=== PATIENT | female | born 1980 | race Caucasian/White ===

== ENCOUNTER 2018-06-14 23:14 | Inpatient (IN) ==
--- NOTE | 2018-06-15 00:54 | ED ---
History of Present Illness Service: [facility] [place] Care Physician: NOT REQUIRED Yves Caceres MD Chief Complaint: Contractions History of Present Illness: This 38 y/o female , EDC 06/27/18, EGA 38 2/7 wks presents due to feeling ctxs. She felt ctxs occ yesterday and then this evening started feeling them more regularly. She has hx LTCS for arrrested descent. She is scheduled for a RLTCS 06/22/18. She denies probs with this . Weeks Gestation:: 38 Para: 1 : 3 Review of Systems All other systems reviewed negative except as stated in HPI PMFSH - History History Provided By: Patient - Medical / Surgical Hx Neg / Unobtainable Medical Problems Denied: Yes - Surgical History Surgical History: Surgical History (Last Updated 06/15/18 @ 00:58 by Mattie Stewart DO) H/O breast augmentation Hx of section - Social History I have reviewed the patient's Social History: Yes - Tobacco History Smoking Status: Never smoker - Alcohol History How Often Do You Have a Drink Containing Alcohol: Never - Substance Use History Substance History: No History of Abuse - Travel History History of Recent Travel: No Recent Travel in the [place] Within the Last 8 Weeks: No Recent Travel Out of the Country Within the Last 8 Weeks: No Medications and Allergies Active Medications: Active Medications Lactated Ringer's (Lr 1000 Ml Inj) 1,000 mls @ 1,000 mls/hr IV.CONT .Q1H LINDSAY Sodium Chloride (Ns Flush) 2 ml IV.FLUSH BID LINDSAY Allergies Allergy/AdvReac Type Severity Reaction Status Date / Time No Known Allergies Allergy Severe Uncoded 04/08/05 04:04 Home Medications Medication Instructions Recorded Confirmed Type 06/15/18 History Exam Vital signs: Vital Signs 06/15/18 00:40 Temperature 98.9 F Pulse Rate 101 H Respiratory Rate 18 Blood Pressure 134/89 Narrative: GENERAL: Well-nourished, well-developed patient. SKIN: Warm and dry. HEAD: Normocephalic and atraumatic. EYES: No scleral icterus. No injection or drainage. ENT: No nasal drainage noted. Mucous membranes pink. Airway patent. NECK: Supple, trachea midline. No JVD. CARDIOVASCULAR: Regular rate and rhythm without murmurs, gallops, or rubs. RESPIRATORY: Breath sounds equal bilaterally. No accessory muscle use. BREASTS: Bilateral exam showed no masses , no retractions, no nipple discharge. ABDOMEN/GI: Abdomen soft, non-tender, bowel sounds present, no rebound, no guarding Gravid to [38] weeks size GENITOURINARY: External Genitalia: intact and normal in appearance BUS glands: [-] Cervix: [] Dilatation: [1] Effacement: [70] Station: [-2] Presentation: [vtx] Membranes: [intact] Uterine Contractions: [every 6 min] FHT's: Category: [1] Baseline: [130] Reactive: [Yes] Variability: [Mod] Decels: [No] EXTREMITIES: No cyanosis or edema. BACK: Nontender without obvious deformity. No CVA tenderness. NEUROLOGICAL: Awake and alert. Motor and sensory grossly within normal limits. Five out of 5 muscle strength in all muscle groups. Normal speech. Results - Labs Group B Strep: Negative Assessment and Plan - Diagnosis (1) Uterine contractions Status: Acute (2) Hx of section Code(s): Z98.891 - History of uterine scar from previous surgery Status: Acute (3) Advanced maternal age (AMA) in Status: Acute (4) 38 weeks gestation of Code(s): Z3A.38 - 38 weeks gestation of Status: Acute - Plan Will give 1L of LR and recheck cervix in 1 hr. If cervical change will contact Dr. Caceres for RLTCS. Discharge Plan - Physicians Team ED Provider: Yves Caceres Primary Care Provider: NOT REQUIRED, - Rxs /Orders / Referrals /Forms Prescriptions: No Action - Discharge Instructions Print Language: Faroese
[2018-06-15] MEDS ORDERED: fentaNYL Citrate Inj 100 MCG/2 ML Ampul IV.PUSH ONE (01:55)
--- NOTE | 2018-06-15 01:58 | P.OBGPN ---
Pt still with ctxs every 7-9 min. Pain scale 9 when she has a ctx. SVE 1-2// -2. WIll give dose of IV Fentanyl and recheck cervix.
--- NOTE | 2018-06-15 03:51 | P.HPOB ---
Patient Name: Christiana Goetz Date of : 82 Patient Status: Emergency Emergency Provider: Yves Caceres Date: 06/15/18 03:46 Initialization Date: 06/15/18 00:51 History of Present Illness [place] [facility] [place] Physician: NOT REQUIRED Yves Caceres MD Chief Complaint: Contractions History of Present Illness: This 38 y/o female , EDC 06/27/18, EGA 38 2/7 wks presents due to feeling ctxs. She felt ctxs occ yesterday and then this evening started feeling them more regularly. She has hx LTCS for arrrested descent. She is scheduled for a RLTCS 06/22/18. She denies probs with this . Cervix has changed from 1 cm to 3-4 cm. Weeks Gestation:: 38 Para: 1 : 3 Review of Systems All other systems reviewed negative except as stated in HPI PMFSH - History History Provided By: Patient - Medical / Surgical Hx Neg / Unobtainable Medical Problems Denied: Yes - Surgical History Surgical History: Surgical History (Last Updated 06/15/18 @ 00:58 by Mattie Stewart DO) H/O breast augmentation Hx of section - Social History I have reviewed the patient's Social History: Yes - Tobacco History Smoking Status: Never smoker - Alcohol History How Often Do You Have a Drink Containing Alcohol: Never - Substance Use History Substance History: No History of Abuse - Travel History History of Recent Travel: No Recent Travel in the [place] Within the Last 8 Weeks: No Recent Travel Out of the Country Within the Last 8 Weeks: No Medications and Allergies Active Medications: Active Medications Lactated Ringer's (Lr 1000 Ml Inj) 1,000 mls @ 1,000 mls/hr IV.CONT .Q1H LINDSAY Sodium Chloride (Ns Flush) 2 ml IV.FLUSH BID LINDSAY Allergies Allergy/AdvReac Type Severity Reaction Status Date / Time No Known Allergies Allergy Severe Uncoded 04/08/05 04:04 Home Medications Medication Instructions Recorded Confirmed Type 06/15/18 History Exam Vital signs: Vital Signs 06/15/18 00:40 Temperature 98.9 F Pulse Rate 101 H Respiratory Rate 18 Blood Pressure 134/89 Narrative: GENERAL: Well-nourished, well-developed patient. SKIN: Warm and dry. HEAD: Normocephalic and atraumatic. EYES: No scleral icterus. No injection or drainage. ENT: No nasal drainage noted. Mucous membranes pink. Airway patent. NECK: Supple, trachea midline. No JVD. CARDIOVASCULAR: Regular rate and rhythm without murmurs, gallops, or rubs. RESPIRATORY: Breath sounds equal bilaterally. No accessory muscle use. BREASTS: Bilateral exam showed no masses , no retractions, no nipple discharge. ABDOMEN/GI: Abdomen soft, non-tender, bowel sounds present, no rebound, no guarding Gravid to [38] weeks size GENITOURINARY: External Genitalia: intact and normal in appearance BUS glands: [-] Cervix: [] Dilatation: [3-4] Effacement: [70] Station: [-2] Presentation: [vtx] Membranes: [intact] Uterine Contractions: [every 6 min] FHT's: Category: [1] Baseline: [120] Reactive: [Yes] Variability: [Mod] Decels: [No] +Accels EXTREMITIES: No cyanosis or edema. BACK: Nontender without obvious deformity. No CVA tenderness. NEUROLOGICAL: Awake and alert. Motor and sensory grossly within normal limits. Five out of 5 muscle strength in all muscle groups. Normal speech. Results - Labs Group B Strep: Negative Assessment and Plan - Diagnosis (1) Uterine contractions- Labor Status: Acute (2) Hx of section Code(s): Z98.891 - History of uterine scar from previous surgery Status: Acute (3) Advanced maternal age (AMA) in Status: Acute (4) 38 weeks gestation of Code(s): Z3A.38 - 38 weeks gestation of Status: Acute - Plan Dr. Yves Caceres contacted and is coming in for RLTCS Discharge Plan - Physicians Team ED Provider: Yves Caceres Primary Care Provider: NOT REQUIRED, - Rxs /Orders / Referrals /Forms Prescriptions: No Action - Discharge Instructions Print Language: Palestinian
[2018-06-15] MEDS ORDERED: ceFAZolin 2 GM Premix Inj 2 GM/50 ML PIGGYBACK IV.SIG ONE (03:58)
[2018-06-15] MEDS ORDERED: Citric Acid/Sodium Citrate Liq 30 ML UDC PO SCH (04:00)
[2018-06-15 04:07] LABS: Baso # (Auto) 0.1 th/mm3 (0.0-0.2); Baso % (Auto) 0.5 % (0.0-2.0); Eos % (Auto) 0.4 % (0.0-4.0); Hematocrit 34.7 % (35.0-46.0); Lymph % (Auto) 19.1 % (9.0-44.0); Mean Corpuscular HGB Conc 34.7 % (32.0-36.0); Mean Corpuscular Hemoglobin 31.8 pg (27.0-34.0); Mean Corpuscular Volume 91.7 fL (80.0-100.0); Mean Platelet Volume 10.2 fL (7.0-11.0); Mono # (Auto) 0.8 th/mm3 (0.0-0.9); Mono % (Auto) 7.8 % (0.0-8.0); Neut # (Auto) 7.5 th/mm3 (1.8-7.7); Neut % (Auto) 72.2 % (16.0-70.0); Platelet Count 207 th/mm3 (150-450); Red Blood Count 3.79 mil/mm3 (4.00-5.30); Red Cell Distribution Width 13.5 % (11.6-17.2); White Blood Count 10.4 th/mm3 (4.0-11.0)
[2018-06-15] MEDS ORDERED: Morphine Sulfate PF Inj 5 MG/10 ML Ampul ONE (04:21)
[2018-06-15] MEDS ORDERED: Simethicone 80 MG Chew Tablet PO PRN (04:35)
[2018-06-15] MEDS ORDERED: Oxytocin 30 Units/500ml Premix 30 UNITS/500 ML BAG IV.SIG ONE (04:35)
[2018-06-15] MEDS ORDERED: Zolpidem Tartrate 5 MG Tablet PO PRN (04:35)
--- NOTE | 2018-06-15 06:32 | MH ---
cc: Yves Caceres MD DATE OF ADMISSION: 06/15/2018 ADMITTING DIAGNOSES: Term , early labor, previous section, advanced maternal age, and multiparity. HISTORY OF PRESENT ILLNESS: The patient is a 38-year-old, single, white female, para 1-0-1-1, with an LMP of 09/13/2017, EDC of 06/20/2018. Her preoperative course has been benign. Her first delivery by for failure to progress in distress and the patient desires repeat section. She reported increasing contractions since last evening, admitted to the labor room with progressive cervical change, is now admitted for delivery. PAST SURGICAL HISTORY: Breast augmentation at age 20, a in 2002. MEDICATIONS: Vitamins. ALLERGIES: NONE. TRANSFUSIONS: None. SOCIAL HISTORY: She is single. She is employed. Alcohol, tobacco, and drugs are none. FAMILY HISTORY: Noncontributory. PHYSICAL EXAMINATION: GENERAL: This is a well-nourished, well-developed white female. VITAL SIGNS: Stable. HEENT: Normal. CHEST: Clear. HEART: Regular rate. BREASTS: Symmetrical. ABDOMEN: Gravid. PELVIC: EFW 3500 grams. Cervix is now 3-4 cm, intact, vertex. EXTREMITIES: Normal. ASSESSMENT AND PLAN: As above. She has now been admitted for a repeat section and bilateral tubal interruption. Surgical risks, benefits, and complications including infection, injury, bleeding, and failure of the tubal were explained and accepted. MD LESVIA Cantu/carlos , 04:33 AM , 04:37 AM
--- NOTE | 2018-06-15 06:39 | MP ---
cc: Yves Caceres MD DATE OF OPERATION: 06/15/2018 PREOPERATIVE DIAGNOSES: 1. Term , early labor. 2. Advanced maternal age, 38. 3. Previous section. 4. Multiparity. POSTOPERATIVE DIAGNOSES. 1. Term , early labor. 2. Advanced maternal age, 38. 3. Previous section. 4. Multiparity. 5. Delivered. PROCEDURE PERFORMED: Repeat low transverse section and bilateral tubal interruption. ANESTHESIA: Spinal. SURGEON: Yves Caceres MD. ESTIMATED BLOOD LOSS: About 500 mL. FLUIDS: 2.5 liters crystalloid. OBJECTIVE FINDINGS: Following induction of adequate spinal anesthesia, the patient was prepped and draped supine on the operating table in left lateral tilt position in usual sterile fashion, with the bladder being drained by Rodgers conization. The abdomen was opened through a Pfannenstiel incision using a knife to excise her old scar. The fascia opened transversely, stripped from the muscles, rectus muscle opened in the midline, and the peritoneum opened sharply without incident. The bladder flap was taken down sharply and retracted inferiorly with the Queta blade. The lower uterine segment was incised transversely with a knife and extended with blunt dissection. Membranes were ruptured of clear fluid. The patient in LOT position. The vacuum extractor applied to the occiput and used to deliver the head through the abdominal wound. Mouth was suctioned. The cord clamped and cut and baby passed to the waiting gloria team. A viable vigorous female, Apgars 9 and 9, weight 7 pounds 10 ounces. Cord blood for typing was sent. Placenta removed and the uterine cavity cleaned with laps. Uterus was exteriorized and the wound on the uterus was closed in 2 layers with running suture, first with a running locking stitch of #0 Vicryl, the second with a running imbricating stitch of #0 Vicryl. The patient now reaffirmed her desire for a tubal. The right fallopian tube was traced to fimbriated end. A window made in the mesosalpinx of the fimbria with the Bovie. The vascular pedicle of the fimbria was clamped with 2 Kellys, the proximal tube with hemostat, and the distal tube and fimbria excised with scissors. The pedicle of the fimbria was then ligated with 2 free ties of 2-0 chromic. The proximal tube was ligated with 2-0 chromic and buried in the uterine fundus in everting fashion with a second suture of 2-0 chromic used to fix the tube in place and the same on the left. Posterior inspection was normal. Uterus was now replaced in the peritoneal cavity. Irrigation performed. No bleeding was evident. The bladder flap was closed with a running stitch of 3-0 Vicryl. The tubal sites were now inspected again they were hemostatic and intact. All ostial retractors removed. Counts were correct. The anterior peritoneum closed with a running stitch of 2-0 Vicryl, the fascia with a running locking stitch of the #0 Vicryl corner to midline and tied, subcutaneous was closed with running 3-0 Vicryl, and the skin with a running subcuticular 3-0 Monocryl. Dermabond applied. All counts were correct and the patient was awakened and taken to the recovery room in good condition. MD LESVIA Cantu/carlos , 05:55 AM , 06:03 AM
[2018-06-15] MEDS ORDERED: Oxytocin 30 Units/500ml Premix 30 UNITS/500 ML BAG ONE (06:41)
[2018-06-15] MEDS ORDERED: Measles/Mumps/Rubella Vaccine Inj 0.5 ML Vial SQ ONE (09:00)
[2018-06-15] MEDS ORDERED: Diphtheria/Tetanus/Pertussis Vaccine Inj 0.5 ML Syringe IM ONE (09:00)
[2018-06-15] MEDS ORDERED: Oxytocin 30 Units/500ml Premix 30 UNITS/500 ML BAG IV.SIG PRN (09:35)
[2018-06-15] MEDS ORDERED: Ketorolac Inj 30 MG/ML (IVP) Vial IV.PUSH PRN (10:02)
[2018-06-15] MEDS ORDERED: Influenza (Quadrivalent) Vaccine 0.5 ML Syringe IM ONE (13:00)
[2018-06-15] MEDS: Senna/Docusate Sodium 8.6/50 MG Tablet PO PRN (23:12)
[2018-06-16 06:11] LABS: Baso % (Auto) 0.2 % (0.0-2.0); Eos # (Auto) 0.1 th/mm3 (0.0-0.4); Eos % (Auto) 0.5 % (0.0-4.0); Hematocrit 30.1 % (35.0-46.0); Hemoglobin 10.5 gm/dL (11.6-15.3); Lymph # (Auto) 1.9 th/mm3 (1.0-4.8); Lymph % (Auto) 16.7 % (9.0-44.0); Mean Corpuscular HGB Conc 34.9 % (32.0-36.0); Mean Corpuscular Hemoglobin 32.5 pg (27.0-34.0); Mean Corpuscular Volume 93.2 fL (80.0-100.0); Mean Platelet Volume 9.2 fL (7.0-11.0); Mono # (Auto) 0.8 th/mm3 (0.0-0.9); Mono % (Auto) 6.8 % (0.0-8.0); Neut # (Auto) 8.6 th/mm3 (1.8-7.7); Neut % (Auto) 75.8 % (16.0-70.0); Platelet Count 167 th/mm3 (150-450); Red Blood Count 3.23 mil/mm3 (4.00-5.30); White Blood Count 11.4 th/mm3 (4.0-11.0)
--- NOTE | 2018-06-16 12:40 | P.PNOB ---
Subjective Post op day: 1 Interval history: Pt doing well, good pain control, tolerating po, ambulating well Objective Vital Signs/I&O: Vital Signs 06/15/18 20:00 06/16/18 00:00 06/16/18 03:59 Temperature 98.0 F 98.2 F 98.3 F Pulse Rate 90 74 89 Respiratory Rate 18 18 18 Blood Pressure 118/69 112/77 130/74 06/16/18 08:00 Temperature 98.1 F Pulse Rate 84 Respiratory Rate 16 Blood Pressure 108/70 Intake & Output 06/15/18 06/16/18 06/16/18 18:59 06:59 18:59 Intake Total 100 / 100 Balance 100 / 100 Intake: IV 100 / 100 Ofirmev Inj 1,000 mg In 100 ml 100 / 100 @ 400 mls/hr IV.SIG Q6H [facility] Rx# :[id number] Result Diagrams: 06/16/18 05:25 Objective Remarks: GENERAL: Well-nourished, well-developed patient. CARDIOVASCULAR: Regular rate and rhythm without murmurs, gallops, or rubs. RESPIRATORY: Breath sounds equal bilaterally. No accessory muscle use. ABDOMEN/GI: Abdomen soft, non-tender, bowel sounds present. Incision: Clean, dry and intact. Fundus: Firm, non-tender at umbilicus. GENITOURINARY: Light to moderate bleeding. EXTREMITIES: No cyanosis or edema, non-tender, without signs of DVT. Medications and IVs: Active Medications Citric Acid/Sodium Citrate (Sodium Citrate/Citric Acid Liq) 30 ml PO [employer] [facility] Stop: 06/19/18 03:59 Last Admin: 06/15/18 04:26 Dose: 30 ml Lactated Ringer's (Lr 1000 Ml Inj) 1,000 mls @ 150 mls/hr IV.CONT .Q6H40M [facility] Last Admin: 06/16/18 00:32 Dose: Not Given Oxytocin (Pitocin 30 Units/Ns 500 Ml Premix) 30 units in 500 mls @ 100 mls/hr IV.SIG UNSCH PRN PRN Reason: Heavy bleeding Ibuprofen (Motrin) 800 mg PO Q8H PRN PRN Reason: cramping Last Admin: 06/15/18 21:29 Dose: 800 mg Ketorolac Tromethamine (Toradol Inj) 30 mg IV.PUSH Q6H PRN PRN Reason: ABDOMINAL PAIN Stop: 06/17/18 10:01 Ondansetron HCl (Zofran Inj) 4 mg IV.PUSH Q6H PRN PRN Reason: NAUSEA OR VOMITING Last Admin: 06/15/18 14:25 Dose: 4 mg Oxycodone/Acetaminophen (Percocet 5/325 Mg) 1 tab PO Q4H PRN PRN Reason: PAIN SCALE 3 TO 5 Last Admin: 06/15/18 23:13 Dose: 1 tab Oxycodone/Acetaminophen (Percocet 5/325 Mg) 2 tab PO Q4H PRN PRN Reason: PAIN SCALE 6 TO 10 Senna/Docusate Sodium (Angie-Colace) 2 tab PO Q12H PRN PRN Reason: CONSTIPATION Last Admin: 06/15/18 23:12 Dose: 2 tab Simethicone (Mylicon Chew) 80 mg PO QID PRN PRN Reason: FLATULENCE Last Admin: 06/15/18 23:14 Dose: 80 mg Sodium Chloride (Ns Flush) 2 ml IV.FLUSH BID [facility] Last Admin: 06/16/18 10:45 Dose: Not Given Sodium Chloride (Ns Flush) 2 ml IV.FLUSH PRN PRN PRN Reason: FLUSH AFTER USING IV ACCESS Sodium Chloride (Ns Flush) 2 ml IV.FLUSH BID [facility] Last Admin: 06/16/18 10:45 Dose: Not Given Sodium Chloride (Ns Flush) 2 ml IV.FLUSH PRN PRN PRN Reason: FLUSH AFTER USING IV ACCESS Zolpidem Tartrate (Ambien) 5 mg PO HS PRN PRN Reason: INSOMNIA Assessment and Plan - Plan POD # 1 s/p repeat c/s doing well, routine post care
[2018-06-16] MEDS: Senna/Docusate Sodium 8.6/50 MG Tablet PO PRN (12:49)
[2018-06-16 17:30] LABS: Bilirubin,Urine Negative (Negative); Clarity,Urine Hazy (Clear); Color,Urine Yellow (Yellw/Straw); Glucose,Urine (UA) Negative (Negative); Leukocyte Esterase,Urine Trace (Negative); Mucus,Urine Few /lpf (Occasional); Nitrite,Urine Negative (Negative); Specific Gravity,Urine 1.013 (1.002-1.035); Squamous Epithelial Cell,Urine 7 /hpf (0-5)
[2018-06-17] MEDS: Senna/Docusate Sodium 8.6/50 MG Tablet PO PRN (00:25)
== END 2018-06-17 13:04 | disposition home or self-care (01) ==
LOC: HOBED 23:14 → H2E 06-15 03:45 → H1EA 06-15 07:26
PROVIDERS: ADMIT Obstetrics & Gynecology; ATTEND Obstetrics & Gynecology